=== PATIENT | male | born 1945 | race Caucasian/White ===

== ENCOUNTER 2017-01-02 11:27 | Emergency (ER) | payer OTHER, MEDICARE ==
[~2017-01-02] VITALS: Ht 175.3 cm; Wt 105.4 kg
[2017-01-02 13:54] LABS: BASOPHIL COUNT 0.1 K/uL (0-0.1); EOSINOPHIL (%) 3.4 % (0-5); EOSINOPHIL COUNT 0.2 K/uL (0-0.3); HEMATOCRIT 43.9 % (38.0-50.0); IMMATURE GRANULOCYTE (%) 0.3 % (0.0-0.7); IMMATURE GRANULOCYTE COUNT 0.2 K/uL; LYMPHOCYTE COUNT 1.5 K/uL (1.0-2.8); MCH 32.2 PG (29.0-34.0); MCHC 35.3 G/DL (30.0-36.0); MCV 91.3 FL (86-99); MEAN PLAT.VOLUME 10.6 uM^3 (9.0-12.4); MONOCYTE (%) 9.8 % (3-12); MONOCYTE COUNT 0.7 K/uL (0-0.8); NEUTROPHIL (%) 65.2 % (45-76); NEUTROPHIL COUNT 4.6 K/uL (1.8-6.4); PLATELET COUNT 184 K/uL (156-360); RBC DIS.WIDTH-SD 42.3 % (39-53); RED BLOOD COUNT 4.81 M/uL (4.00-5.50); WHITE BLOOD COUNT 7.1 K/uL (4.1-10.2)
[2017-01-02 14:02] LABS: CHLORIDE 106 mEq/L (99-109); POTASSIUM 4.1 mEq/L (3.7-5.4); SODIUM 140 mEq/L (136-147)
[2017-01-02 14:04] LABS: GLUCOSE 92 mg/dL (70-99)
[2017-01-02 14:05] LABS: ANION GAP 13 MEQ/L (2-14)
[2017-01-02 14:06] LABS: TOTAL BILIRUBIN 0.7 mg/dL (0.0-1.0)
[2017-01-02 14:07] LABS: ALKALINE PHOSPHATASE 90 IU/L (3-129)
[2017-01-02 14:08] LABS: GFR ESTIMATE (CALCULATED) 58 mL/min/
[2017-01-02 14:09] LABS: UREA NITROGEN (BUN) 15 mg/dL (9-23)
[2017-01-02 15:17] LABS: TROP-I INTERPRETATION NEGATIVE; TROPONIN-I < 0.01 ng/mL (0.0-0.30)
[2017-01-02] MEDS ORDERED: MECLIZINE HCL25 MG PO (16:51)
[2017-01-02] MEDS ORDERED: VALIUM5 MG PO (16:51)
[2017-01-02 17:05] VITALS: BP 124/60
== END 2017-01-02 17:09 | disposition home or self-care (01) ==
LOC: EME 11:27
PROVIDERS: Emergency Medicine
DX: H81.10 Benign paroxysmal vertigo, unspecified ear (principal); G20 Parkinson's disease; G30.9 Alzheimer's disease, unspecified; I10 Essential (primary) hypertension; I25.2 Old myocardial infarction; Z95.1 Presence of aortocoronary bypass graft
CPT/HCPCS: 70450; 80053; 84484; 85025; 93005; 99281; 99285

== ENCOUNTER 2018-03-21 16:42 | Observation (INO) | payer OTHER, MEDICARE ==
[~2018-03-21] VITALS: Ht 175.3 cm; Wt 99.1 kg
[~2018-03-21 16:42] MED LIST: MECLIZINE HCL25 MG PO; VALIUM5 MG PO
[2018-03-21 17:33] LABS: HEMATOCRIT 47.1 % (38.0-50.0); HEMOGLOBIN 16.1 G/DL (12.5-16.6); MCH 32.3 PG (29.0-34.0); MCHC 34.2 G/DL (30.0-36.0); MCV 94.4 FL (86-99); PLATELET COUNT 167 K/uL (156-360); RBC DIS.WIDTH-CV 12.7 % (11.8-14.6); RED BLOOD COUNT 4.99 M/uL (4.00-5.50); WHITE BLOOD COUNT 7.5 K/uL (4.1-10.2)
[2018-03-21 17:44] LABS: CHLORIDE 105 mEq/L (99-109); POTASSIUM 4.9 mEq/L (3.7-5.4); SODIUM 141 mEq/L (136-147)
[2018-03-21 17:45] LABS: GLUCOSE 99 mg/dL (70-99)
[2018-03-21 17:49] LABS: CREATININE 1.4 mg/dL (0.6-1.3)
[2018-03-21 17:50] LABS: UREA NITROGEN (BUN) 21 mg/dL (9-23)
[2018-03-21 17:54] LABS: TROP-I INTERPRETATION NEGATIVE; TROPONIN-I < 0.01 ng/mL (0.0-0.30)
[2018-03-21 18:08] LABS: GFR ESTIMATE (CALCULATED) 53 mL/min/ (58.99-99999)
[2018-03-21] MEDS ORDERED: DITROPAN XL10 MG PO (21:19)
[2018-03-21] MEDS ORDERED: ADULT ASPIRIN R81 MG PO (21:19)
[2018-03-21] MEDS ORDERED: TOPROL XL50 MG PO (21:19)
[2018-03-21] MEDS ORDERED: LIPITOR20 MG PO (21:19)
[2018-03-21] MEDS ORDERED: FISH OIL 1,2001 EAC4 PO (21:19)
[2018-03-21] MEDS ORDERED: PRINIVIL20 MG PO (21:19)
[2018-03-21] MEDS ORDERED: RED YEAST RICE600 M1 PO (21:19)
[2018-03-21] MEDS ORDERED: NAMENDA10 MG PO (21:19)
[2018-03-21] MEDS ORDERED: VITAMIN D31000 UNI2 PO (21:20)
[2018-03-21] MEDS ORDERED: B-COMPLEX-VITA1 EACH PO (21:20)
[2018-03-21] MEDS ORDERED: ARICEPT10 MG PO (21:20)
[2018-03-21] MEDS ORDERED: SINEMET 25-1001 EACH PO (21:20)
[2018-03-21 23:27] LABS: TROP-I INTERPRETATION NEGATIVE; TROPONIN-I < 0.01 ng/mL (0.0-0.30)
[2018-03-22 00:37] VITALS: BP 132/61
[2018-03-22 04:40] VITALS: BP 117/60
[2018-03-22 06:10] LABS: TROP-I INTERPRETATION NEGATIVE; TROPONIN-I < 0.01 ng/mL (0.0-0.30)
[2018-03-22 07:45] VITALS: BP 126/64
[2018-03-22] MEDS ORDERED: NITROSTAT0.4 MG SL (11:13)
[2018-03-22] MEDS ORDERED: IMDUR60 MG PO (11:13)
[2018-03-22 11:56] VITALS: BP 123/59
== END 2018-03-22 13:43 | disposition home or self-care (01) ==
LOC: EME 16:42 → RME 16:42 → EDOF 21:56 → ENRESERV 22:05 → 4SOUTH 03-22 00:25
PROVIDERS: Physician Assistant
DX: R07.9 Chest pain, unspecified (principal); R42 Dizziness and giddiness; R53.1 Weakness; R61 Generalized hyperhidrosis; I25.10 Atherosclerotic heart disease of native coronary artery without angina pectoris; I10 Essential (primary) hypertension; E78.5 Hyperlipidemia, unspecified; G20 Parkinson's disease; G30.9 Alzheimer's disease, unspecified; F02.80 Dementia in other diseases classified elsewhere, unspecified severity, without behavioral disturbance, psychotic disturbance, mood disturbance, and anxiety; Z79.82 Long term (current) use of aspirin; Z95.1 Presence of aortocoronary bypass graft; Z82.3 Family history of stroke; Z82.49 Family history of ischemic heart disease and other diseases of the circulatory system
CPT/HCPCS: 71046; 80048; 84484; 85027; 93005; 99281; 99285; G0378; J1650